=== PATIENT | female | born 1930 | race African-American/Black ===

== ENCOUNTER 2018-05-21 10:21 | Emergency (ER) | payer OTHER ==
[2018-05-21 11:59] LABS: ADD MAN DIFF? NO
[2018-05-21] MEDS: fentaNYL PF VIAL 100 MCG/2 ML VIAL IV (12:00)
[2018-05-21 12:04] LABS: BASO # 0.2 x10^3/uL (0.0-0.2); BASO % 1 % (0-3); EOS # 0.6 x10^3/uL (0.0-0.7); EOS % 4 % (0-3); HEMATOCRIT 34.2 % (36.0-47.0); HEMOGLOBIN 11.6 g/dL (12.0-15.5); LYMPH % 22 % (24-48); MEAN CORPUSCULAR HEMOGLOBIN 31 pg (25-35); MEAN CORPUSCULAR HGB CONC 34 g/dL (31-37); MEAN CORPUSCULAR VOLUME 90 fL (79-100); MONO # 1.2 x10^3/uL (0.0-1.1); MONO % 9 % (0-9); NEUT # 8.9 x10^3uL (1.8-7.7); NEUT % 64 % (31-73); PLATELET COUNT 326 x10^3/uL (140-400); RED BLOOD COUNT 3.79 x10^6/uL (3.50-5.40); RED CELL DISTRIBUTION WIDTH 14.2 % (11.5-14.5); WHITE BLOOD COUNT 13.8 x10^3/uL (4.0-11.0)
[2018-05-21 12:13] LABS: ANION GAP 11 (6-14); BLOOD UREA NITROGEN 17 mg/dL (7-20); BUN/CREATININE RATIO 14 (6-20); CALCIUM 9.7 mg/dL (8.5-10.1); CARBON DIOXIDE 26 mmol/L (21-32); CHLORIDE 94 mmol/L (98-107); CREATININE 1.2 mg/dL (0.6-1.0); GFR 51.5; GLUCOSE 227 mg/dL (70-99); POTASSIUM 4.3 mmol/L (3.5-5.1); SODIUM 131 mmol/L (136-145)
[2018-05-21 12:19] LABS: ALBUMIN 3.8 g/dL (3.4-5.0); ALBUMIN/GLOBULIN RATIO 0.8 (1.0-1.7); ALK PHOS 94 U/L (46-116); ALT (SGPT) 19 U/L (14-59); AST (SGOT) 14 U/L (15-37); TOTAL BILIRUBIN 0.3 mg/dL (0.2-1.0); TOTAL PROTEIN 8.6 g/dL (6.4-8.2)
== END 2018-05-21 13:14 | disposition home or self-care (01) ==
LOC: ER 10:21
DX: M79.604 Pain in right leg (principal); E87.1 Hypo-osmolality and hyponatremia; E11.65 Type 2 diabetes mellitus with hyperglycemia; I10 Essential (primary) hypertension; E03.9 Hypothyroidism, unspecified; Z87.440 Personal history of urinary (tract) infections; Z88.2 Allergy status to sulfonamides
CPT/HCPCS: 36415; 80053; 85025; 93971; 96374; 96375; 99285-25; J3010

== ENCOUNTER 2021-10-07 19:33 | Emergency (ER) | payer OTHER, MEDICARE ==
[~2021-10-07] VITALS: Ht 157.5 cm; Wt 81.8 kg
[~2021-10-07 19:33] MED LIST: TRAM-48 PO
--- NOTE | 2021-10-07 19:50 | PHYS DOC ---
Past Medical History Past Medical History: Diabetes-Type II, Hypertension, Hyperthyroid, Hypot hyroid, UTI, Other Additional Past Medical Histor: "fast heart rate" Past Surgical History: Hysterectomy Additional Past Surgical Histo: Carpal tunnel, Smoking Status: Never Smoker Alcohol Use: None Drug Use: None General Adult EDM: Chief Complaint: MECHANICAL FALL HPI: HPI: Patient is a 89 year old female presents with a chief complaint of right ankle pain. Yesterday patient was walking to the bathroom sustained a mechanical fall and twisted her right ankle. Patient has pain along the lateral malleolus. There is some soft tissue swelling do not appreciate any deformities her right lower extremity is neurovascularly intact. Patient denies any other injuries she denies hitting her head she has no right knee pain. Patient arrived by private vehicle history obtained from the patient. Patient also mentioned shoulder pain. Patient has right shoulder pain related to a fall several weeks ago. On exam patient has full range of motion of her right upper extremity. There are no signs of deformity her right upper extremity is neurovascularly intact. We will plan on ordering an x-ray of patient's right ankle and right shoulder. We will treat patient with hydrocodone in the department. Review of Systems: Review of Systems: Constitutional: Denies fever or chills. [] Eyes: Denies change in visual acuity. [] HENT: Denies nasal congestion or sore throat. [] Respiratory: Denies cough or shortness of breath. [] Cardiovascular: Denies chest pain or edema. [] GI: Denies abdominal pain, nausea, vomiting, bloody stools or diarrhea. [] : Denies dysuria. [] Musculoskeletal: Denies back pain or joint pain. [RIGHT ANKLE AND SHOULDER PAIN] Integument: Denies rash. [] Neurologic: Denies headache, focal weakness or sensory changes. [] Endocrine: Denies polyuria or polydipsia. [] Lymphatic: Denies swollen glands. [] Psychiatric: Denies depression or anxiety. [] Heart Score: C/O Chest Pain: N/A Risk Factors: Risk Factors: DM, Current or recent (<one month) smoker, HTN, HLP, family history of CAD, obesity. Risk Scores: Score 0 - 3: 2.5% MACE over next 6 weeks - Discharge Home Score 4 - 6: 20.3% MACE over next 6 weeks - Admit for Clinical Observation Score 7 - 10: 72.7% MACE over next 6 weeks - Early Invasive Strategies Allergies: Allergies: Allergies Coded Allergies Type Severity Reaction Last Updated Verified Sulfa (Sulfonamide Antibiotics) Allergy Mild RASH 05/21/18 Yes Physical Exam: PE: Constitutional: Well developed, well nourished, no acute distress, non-toxic appearance. [] HENT: Normocephalic, atraumatic, bilateral external ears normal, oropharynx moist, no oral exudates, nose normal. [] Eyes: PERRLA, EOMI, conjunctiva normal, no discharge. [] Neck: Normal range of motion, no tenderness, supple, no stridor. [] Cardiovascular:Heart rate regular rhythm, no murmur [] Lungs & Thorax: Bilateral breath sounds clear to auscultation [] Abdomen: Bowel sounds normal, soft, no tenderness, no masses, no pulsatile masses. [] Skin: Warm, dry, no erythema, no rash. [] Back: No tenderness, no CVA tenderness. [] Extremities: Full range of motion right shoulder no deformities noted right upper extremity neurovascularly intact, full range of motion with discomfort right ankle there is some swelling along the lateral malleolus right lower extremity neurovascularly intact Neurologic: Alert and oriented X 3, normal motor function, normal sensory function, no focal deficits noted. [] Psychologic: Affect normal, judgement normal, mood normal. [] EKG: EKG: [] Radiology/Procedures: Radiology/Procedures: [] Impression: X-ray wet read no acute fractures or dislocation of the right shoulder right ankle Course & Med Decision Making: Course & Med Decision Making Pertinent Labs and Imaging studies reviewed. (See chart for details) [] Treated with hydrocodone discharged home with hydrocodone Dragon Disclaimer: Dragon Disclaimer: This electronic medical record was generated, in whole or in part, using a voice recognition dictation system. Departure Departure Impression: Primary Impression: Ankle sprain Additional Impression: Shoulder pain Disposition: HOME / SELF CARE / HOMELESS Condition: STABLE Referrals: PRICE ECHEVARRIA MD (PCP) Patient Instructions: Ankle Sprain, Shoulder Pain Scripts Hydrocodone/Acetaminophen (Hydrocodone-Acetamin 5-325 mg) 1 Each Tablet 1 EACH PO Q4-6HRS, #14 TAB Prov: GUILLERMO HUGGINS DO 10/07/21 GUILLERMO HUGGINS DO Oct 07, 2021 19:50
[2021-10-07] MEDS ORDERED: HYDROcodone/APAP 5/325MG 1 TAB TABLET PO ONE (20:45)
--- NOTE | 2021-10-07 21:32 | RAD ---
Exam: Right shoulder 3 views INDICATION: Shoulder pain TECHNIQUE: Frontal view of the right shoulder with internal and external rotation and transscapular Y views Comparisons: None FINDINGS: Bone mineralization is normal. No acute or healed fractures. Soft tissues are unremarkable. Joint [facility] are well-maintained. IMPRESSION: No acute osseous abnormality. Electronically signed by: Ricardo Andujar MD (10/07/2021 9:30 PM) DIVYA
--- NOTE | 2021-10-07 21:35 | RAD ---
Exam: Right ankle 3 views INDICATION: Ankle pain TECHNIQUE: Frontal, lateral and oblique views of the left ankle Comparisons: None FINDINGS: Soft tissue swelling at the right ankle. Diffuse osteopenia. Fixation hardware noted at the distal fi bula. Mild periprosthetic lucency surrounding the syndesmotic screw at the distal tib-fib. No acute f racture. Joint spaces are well-maintained. IMPRESSION: Soft tissue swelling surrounding the ankle without underlying osseous abnormality identified. Electronically signed by: Ricardo Andujar MD (10/07/2021 9:32 PM) DIVYA
[2021-10-07] MEDS ORDERED: HYDR-2759 PO (21:39)
[2021-10-07 22:08] VITALS: BP 142/70
== END 2021-10-07 22:30 | disposition home or self-care (01) ==
LOC: ER 19:33
DX: S93.401A Sprain of unspecified ligament of right ankle, initial encounter (principal); M25.511 Pain in right shoulder; E11.9 Type 2 diabetes mellitus without complications; I10 Essential (primary) hypertension; E03.9 Hypothyroidism, unspecified; W18.39XA Other fall on same level, initial encounter; Y93.01 Activity, walking, marching and hiking; Y92.89 Other specified places as the place of occurrence of the external cause; Y99.8 Other external cause status
CPT/HCPCS: 73030; 73610; 99285-25